=== PATIENT | female | born 1995 | race Caucasian/White ===

== ENCOUNTER 2018-06-17 19:20 | Inpatient (IN) | payer OTHER ==
[2018-06-17] MEDS ORDERED: TYLENOL PO PRN (21:11)
[2018-06-17] MEDS ORDERED: COLACE PO PRN (21:11)
--- NOTE | 2018-06-17 21:20 | History and Physical Report ---
History of Present Illness Date of examination: 06/17/18 Date of admission: 06/17/18 Chief complaint: "Sent from the clinic for evaluation" History of present illness: 23yo G 2 P 0 1 0 1 @ 37 weeks 0 day here from [facility] for evaluation secondary to IUGR. She reports +FMs and denies UCs, VB or LOF. care initiated at 7 weeks 2 days gestation. Her course has been complicated by h/o induction of labor at 35 wks secondary to IUGR and gestational thrombocytopenia. Labs: O pos, Antibody Screen neg, Pap test normal, RI, VDRL neg, Urine Culture neg, HBsAg neg, HIV neg, GC/CT neg, MASFP neg, Diabetes Screen 97, GBS neg. Past History Past Medical History: no pertinent history Past Surgical History: no surgical history Family/Genetic History: none Social history: , lives with family, full code. denies: smoking, alcohol abuse, prescription drug abuse, IV drug use - Obstetrical History Expected Date of Delivery: 07/08/18 Actual Gestation: 37 Week(s) 0 Day(s) : 2 Para: 1 Hx # Term Pregnancies: 0 Number of Pregnancies: 1 Spontaneous Abortions: 0 Induced : 0 Number of Living Children: 1 #1 Gender: Male year: 2,015 (01/2016) Birthweight: 2.268 kg (5 lbs) Method of Delivery: Vaginal Complications: other (IUGR) Medications and Allergies Allergies Allergy/AdvReac Type Severity Reaction Status Date / Time No Known Allergies Allergy Unverified 06/17/18 20:27 Active Meds: Active Medications Acetaminophen (Tylenol) 650 mg PO Q4H PRN PRN Reason: Pain MILD(1-3)/Fever >100.5/HERNANDEZ Docusate Sodium (Colace) 100 mg PO Q12H PRN PRN Reason: Constipation Multivitamins/Iron/Calcium ( Vitamin) 1 each PO QDAY BARRETT Review of Systems All systems: negative - Obstetrical FHR: auscultation normal, category 1 FHR comments: baseline 140, moderate variability, 15x15 accels, no decels Uterine Contraction Monitor Mode: External Uterine Contraction Frequency (min): 3 Uterine Contraction Pattern: Regular Results All other labs normal. Assessment and Plan - Patient Problems (1) 37 weeks gestation of Current Visit: Yes Status: Acute (2) IUGR (intrauterine growth restriction) Current Visit: Yes Status: Acute Plan to address problem: Admit to L&D for Observation Received orders from Dr. Oneal: BPP, EFW, Uterine artery Doppler, Continuous EFM. Once reactive, may eat but NPO after midnight. [facility] consult in AM. Plan of care discussed with patient & her significant other. All questions ans wered.
[2018-06-17 22:26] LABS: Hematocrit 37.3 % (30.3-42.9); Hemoglobin 12.9 gm/dl (10.1-14.3); Mean Corpuscular Hemoglobin 33 pg (28-32); Mean Corpuscular Volume 95 fl (79-97); Red Blood Count 3.91 M/mm3 (3.65-5.03)
[2018-06-17 22:27] LABS: Mean Corpuscular HGB Conc 35 % (30-34); Platelet Count 148 K/mm3 (140-440); Red Cell Distribution Width 13.9 % (13.2-15.2)
--- NOTE | 2018-06-17 23:12 | Ultrasound Report ---
FINAL REPORT PROCEDURE: US OB BPP WO NON-STRESS TECHNIQUE: Sonographic evaluation for breathing, movement, tone, and amniotic flui d volume was performed. CPT 39934 HISTORY: IUGR COMPARISON: No prior studies are available for comparison. FINDINGS: Amniotic fluid volume: Normal-score 2. At least one vertical pocket > 2 cm or more in vertical axi s. breathing: Normal-score 2. movement: Normal-score 2. tone: Normal. Score: 8 of 8. IMPRESSION: Normal biophysical profile.
--- NOTE | 2018-06-17 23:18 | Ultrasound Report ---
FINAL REPORT PROCEDURE: US OB FOLLOW UP TECHNIQUE: Real-time transabdominal sonography of the uterus, placenta, amniotic fluid, adnexa, and fetus was performed with image documentation. Measurements were obtained to determine age/size. M-mode Doppler was used to document heartbeat. CPT 04732 HISTORY: IUGR COMPARISON: No prior studies are available for comparison. FINDINGS: ADDITIONAL GESTATION: None. GENERAL: IUP: Single living intrauterine . Position: Cephalic Placental position: Anterior with grade 3 maturation, without previa. Amniotic fluid volume: Amnioti c fluid index is 6.6 centimeters which is slightly below normal range. Heart rate and rhythm: 128 beats per minute, regular anatomic survey: Normal. MEASUREMENTS: BPD: 8.5 centimeters corresponding to 34 weeks and 2 days HC: 31.5 centimeters corresponding to 35 weeks and 3 days AC: 30.7 centimeters corresponding to 34 weeks and 4 days FL: 7.2 centimeters corresponding to 37 weeks and 0 days Mean Gestational Age (composite criteria): 35 weeks and 2 days Ratio biometry: Normal. Estimated Weight: 2649 grams. Estimated Due Date (earliest scan): 07/10/2018 IMPRESSION: Single intrauterine gestation at 35 weeks and 2 days. Estimated due date: 07/10/2018.
--- NOTE | 2018-06-17 23:54 | Ultrasound Report ---
FINAL REPORT PROCEDURE: US OB VELOCIMETRY UMBILCAL ART TECHNIQUE: Real-time limited sonographic examination was performed for evaluation of umbilical cord for each fetus with image documentation (1 or more fetuses). CPT 96534 HISTORY: IUGR COMPARISON: No prior studies are available for comparison. FINDINGS: Ultrasound evaluation of the umbilical cord utilizing doppler imaging shows appropriate blood flow in the cord. S/D ratio averages 2.5. Resistive index is 0.6. heart rate 158 beats per minute. IMPRESSION: Normal umbilical cord Doppler imaging
--- NOTE | 2018-06-18 09:37 | Event Note ---
23yo 37 weeks diagnosed with IUGR at external clinic[facility] for prolonged evaluation. Chart reviewed. Low normal DANNY 6.6 EFW 2649g BPP 11/28 NST Category I US dating 35 wks 2 days Due to history of IUGR and low normal DANNY will await [facility] consult and recommendation on delivery.
[2018-06-18] MEDS: PRENATAL VITAMIN PO SCH (10:28)
--- NOTE | 2018-06-18 11:14 | Consultation ---
History of Present Illness Consult date: 06/18/18 Requesting physician: KRISTOPHER TELLEZ Reason for consult: other History of present illness: Thank you for your consultation regarding this patient. As you are aware, she is a 23 year old para 0101 at 37 weeks gestation This patient has NOT been followed by [facility]. The diagnosis of suspected IUGR was based on ultrasound performed at [facility] earlier yesterday. Patient was admitted and is NOT in labor Following admission her FHR tracing has been Category 1 Her DANNY is low at 6.6 cm. The patient describes ADMITS to movement. She denies vaginal bleeding, leakage of fluid or abdominal pain. She was written for steroids to enhance lung maturity. PAST OBSTETRICAL & MEDICAL HISTORY: See notes in patients chart. [facility] ULTRASOUND 08/30/17: presentation: Cephalic. heart motion: 147 beats per minute. Low normal DANNY 6.6 EFW 2649g. BPP 8/8 NST Category I US dating 35 wks 2 days Past History Past Medical History: no pertinent history Past Surgical History: no surgical history Family/Genetic History: none - Obstetrical History : 2 #1 Infant Gender: Male year: 2,[birth year] (01/2016) Birthweight: 2.268 kg (5 lbs) Method of Delivery: Vaginal Complications: other (IUGR) Medications and Allergies Allergies Allergy/AdvReac Type Severity Reaction Status Date / Time No Known Allergies Allergy Unverified 06/17/18 20:27 Active Meds: Active Medications Acetaminophen (Tylenol) 650 mg PO Q4H PRN PRN Reason: Pain MILD(1-3)/Fever >100.5/HERNANDEZ Last Admin: 06/18/18 01:19 Dose: 650 mg Documented by: Docusate Sodium (Colace) 100 mg PO Q12H PRN PRN Reason: Constipation Multivitamins/Iron/Calcium ( Vitamin) 1 each PO QDAY BARRETT Last Admin: 06/18/18 10:28 Dose: 1 each Documented by: - Vital Signs Vital signs: Vital Signs Pulse BP 72 112/74 06/17/18 21:20 06/17/18 21:20 Temp Pulse Resp BP Pulse Ox 97.4 F L 71 18 109/74 06/18/18 07:44 06/18/18 07:44 06/18/18 07:44 06/18/18 07:44 Results Result Diagrams: 06/17/18 22:04 Abnormal lab results 06/17/18 Range/Units 22:04 MCH 33 H (28-32) pg MCHC 35 H (30-34) % All other labs normal. Assessment and Plan ASSESSMENT This is a 23 year old para 0101 at 37+ weeks admitted due to growth restriction and borderline DANNY. Cannot rule out any other anomalies. Cannot rule out aneuploidy Category 1 Tracing. During my discussion with the patient María Elena indicated that a number of causes for growth restriction can be identified in this those would include: o Incorrect gestational dating o Chromosomal abnormalities including Down syndrome, trisomy 13 and trisomy 18. o A small for gestational age (normal) fetus. o Prescription medication o Additional abnormalities not appreciated on ultrasound. TIMING OF DELIVERY The optimal timing of delivery of the growth-restricted fetus Per ACOG recommendation depends on the underlying etiology of the growth restriction, prognosis, ultrasound findings, as well as the estimated gestational age. With stable interval growth progression I recommend the following; o At 3839 wk in an otherwise uncomplicated without concurrent findings. o At 3437 wk: with concurrent conditions (oligohydramnios, abnormal Doppler studies, early labor, maternal risk factors, co-morbidity); o Expeditious delivery regardless of gestational age, depending on related findings. At the gestational age the risk of prolongation is considerably higher than the benefits of expedited delivery and hence we would recommend that this patient be delivered. Particularly in the face of borderline amniotic fluid, I would NOT recommend outpatient management for this case. RECOMMENDATIONS: * We would recommend DELIVERY in this clinical scenario. * Case to be discussed with the physician project/production manager imaging for project/production manager imaging. * Mode of delivery should be based on Pineda score and FHR tracing following admission to the hospital. * Kindly contact [facility] as needed if her clinical status changes. Thank you for allowing us to participate in the care of this patient. If you have any questions, please contact our office at [phone] Jessica Chowdary M.D.
[2018-06-18] MEDS ORDERED: PITOCin/NS 20 UNIT/1000ML DRIP 20 UNITS/1,000 ML BAG IV SCH (14:00)
[2018-06-18] MEDS ORDERED: PITOCin/NS 30 UNIT/500ML 30 UNITS/500 ML BAG IV SCH (14:00)
[2018-06-18] MEDS ORDERED: LACTATED RINGERS 1,000 ML IV SCH (15:00)
--- NOTE | 2018-06-18 16:02 | Progress Note ---
Assessment and Plan A: IUP at 37w1d IUGR Oligohydramnios Category 1 tracing Pitocin 4mu P: Pitocin Augmentation per recommendation for Delivery [facility] Anticipate Subjective - Subjective Date of service: 06/18/18 Principal diagnosis: IUP at 37w1d, UIGR, Oligohydramnios Patient reports: movement normal, no loss of fluid, no vaginal bleeding, no contractions Objective - Vital Signs Vital Signs: Vital Signs - 12hr 06/18/18 06/18/18 06/18/18 07:43 07:44 12:14 Temperature 97.4 F L Pulse Rate 71 71 73 Respiratory 18 Rate Blood Pressure 109/74 118/79 Blood Pressure 109/74 [Left] O2 Sat by Pulse Oximetry 06/18/18 06/18/18 06/18/18 12:29 12:30 14:44 Temperature 97.1 F L Pulse Rate 78 78 81 Respiratory 18 Rate Blood Pressure 113/75 118/77 Blood Pressure 113/75 [Left] O2 Sat by Pulse Oximetry 06/18/18 06/18/18 06/18/18 14:58 15:12 15:13 Temperature Pulse Rate 81 81 81 Respiratory Rate Blood Pressure 109/68 115/74 Blood Pressure [Left] O2 Sat by Pulse 99 Oximetry 06/18/18 06/18/18 06/18/18 15:17 15:22 15:27 Temperature Pulse Rate 83 79 88 Respiratory Rate Blood Pressure Blood Pressure [Left] O2 Sat by Pulse 99 99 99 Oximetry 06/18/18 06/18/18 06/18/18 15:29 15:32 15:33 Temperature 97.8 F Pulse Rate 74 84 Respiratory Rate Blood Pressure 114/67 Blood Pressure [Left] O2 Sat by Pulse 98 Oximetry 06/18/18 06/18/18 06/18/18 15:37 15:42 15:43 Temperature Pulse Rate 80 88 73 Respiratory Rate Blood Pressure 111/70 Blood Pressure [Left] O2 Sat by Pulse 99 98 Oximetry 06/18/18 06/18/18 15:47 15:52 Temperature Pulse Rate 89 82 Respiratory Rate Blood Pressure Blood Pressure [Left] O2 Sat by Pulse 98 99 Oximetry - Exam Breasts: normal Cardiovascular: Regular rate, Normal S1, Normal S2, No murmurs Lungs: Clear to auscultation, Normal air movement Abdomen: Present: normal appearance, soft, normal bowel sounds. Absent: distention Vulva: both: normal Uterus: Present: normal, other (Gravid) FHR: category 1 Uterine Contraction Monitor Mode: External Cervical Dilatation: 3 (Per RN) Cervical Effacement Percentage: 70 station: 2 Uterine Contraction Frequency (min): 2 Uterine Contraction Pattern: Regular Uterine Tone Measurement Phase: Resting Uterine Contraction Intensity: Mild Extremities: normal Deep Tendon Reflex Grade: Normal +2 - Labs Labs: Abnormal Labs 06/17/18 22:04 MCH 33 H MCHC 35 H Laboratory Results - last 24 hr 06/17/18 06/17/18 22:04 22:04 WBC 9.4 RBC 3.91 Hgb 12.9 Hct 37.3 MCV 95 MCH 33 H MCHC 35 H RDW 13.9 Plt Count 148 Blood Type O POSITIVE Antibody Screen Negative
[2018-06-18] MEDS ORDERED: STADOL IV PRN (23:46)
[2018-06-19] MEDS ORDERED: MINERAL OIL ONE (00:21)
--- NOTE | 2018-06-19 01:16 | Procedure Note ---
OB Delivery Note - Delivery Date of Delivery: 06/19/18 Surgeon: MISHA GREGORIO Estimated blood loss: 200cc - Vaginal Delivery presentation: vertex Delivery position: OA Intrapartum events: none Delivery induction: oxytocin Delivery augmentation: rupture of membranes, pitocin Delivery monitor: external FHT, external uterine Route of delivery: Delivery placenta: spontaneous Delivery cord: 3 umbilical vessels Episiotomy: none Delivery laceration: none Anesthesia: intravenous Delivery comments: delivered OA and placed on Mom's chest for [id number] bonding and delayed cord clamping, cut by Grandma - Infant A at 1 minute: 8 at 5 minutes: 9 Gender: Female (2357gms)
[2018-06-19] MEDS ORDERED: TYLENOL PO PRN (01:17)
[2018-06-19] MEDS ORDERED: PHENERGAN PO PRN (01:17)
[2018-06-19] MEDS ORDERED: NORCO 5/325 PO PRN (01:17)
[2018-06-19] MEDS ORDERED: PHENERGAN PR PRN (01:17)
[2018-06-19] MEDS ORDERED: BENADRYL PO PRN (01:17)
[2018-06-19] MEDS ORDERED: ZOFRAN IV PRN (01:17)
[2018-06-19] MEDS ORDERED: DULCOLAX PR PRN (01:17)
[2018-06-19] MEDS ORDERED: LANSINOH TP PRN (01:17)
[2018-06-19] MEDS ORDERED: MILK OF MAGNESIA PO PRN (01:17)
[2018-06-19] MEDS ORDERED: TUCKS PAD TP PRN (01:17)
[2018-06-19] MEDS ORDERED: PITOCin/NS 20 UNIT/1000ML DRIP 20 UNITS/1,000 ML BAG IV SCH (02:00)
[2018-06-19] MEDS ORDERED: SODIUM CHLORIDE FLUSH SYRINGE 10 ML IV NR (02:00)
[2018-06-19] MEDS: MOTRIN PO SCH ×3 (04:16→17:36)
[2018-06-19] MEDS: PRENATAL VITAMIN PO SCH (12:07)
[2018-06-19] MEDS: FEOSOL PO SCH (12:07)
[2018-06-19 13:49] LABS: Hematocrit 34.3 % (30.3-42.9); Hemoglobin 11.7 gm/dl (10.1-14.3)
[2018-06-20] MEDS ORDERED: M-M-R II VACCINE SUB-Q ONE (06:00)
[2018-06-20] MEDS: MOTRIN PO SCH ×5 (06:30→22:29)
--- NOTE | 2018-06-20 09:04 | Progress Note ---
Assessment and Plan A: PPD#1 s/p Stable P: Routine PP care Discharge home today pending Peds Subjective - Subjective Date of service: 06/20/18 Principal diagnosis: PPD#1 s/p Interval history: See H&P and delivery note Patient reports: appetite normal, voiding normally, pain well controlled, flatus, ambulating normally : doing well, other (Breast/Bottle) Objective - Vital Signs Latest vital signs: Vital Signs Temp Pulse Resp BP Pulse Ox 06/19/18 21:52 98.4 F 86 20 106/65 94 06/19/18 16:48 98.5 F 78 24 86/55 97 06/19/18 12:45 98.2 F 79 20 90/57 96 Intake and Output 06/19/18 06/20/18 06/20/18 23:59 07:59 15:59 Intake Total 480 Balance 480 Intake: Oral 480 Other: Total, Intake Amount 240 # Voids Void 1 - Exam Breasts: Present: normal Cardiovascular: Present: Regular rate, Normal S1, Normal S2, No murmurs Lungs: Present: Clear to auscultation, Normal air movement Abdomen: Present: normal appearance, soft, normal bowel sounds. Absent: distention, tenderness Vulva: both: normal Uterus: Present: normal, firm, fundal height below umbilicus (-1) Extremities: Present: normal Deep Tendon Reflex Grade: Normal +2
--- NOTE | 2018-06-20 09:05 | Discharge Summary ---
Providers - Providers Date of Admission: 06/18/18 13:20 Date of discharge: 06/20/18 Attending physician: KRISTOPHER TELLEZ 06/17/18 23:30 Consult to Physician [CONS] Urgent Comment: labor admission Consulting Provider: KRISTOPHER TELLEZ Physician Instructions: recommendation for further evaulation of possible Reason For Exam: Hx of IUGR and current diagnosis Primary care physician: KRISTOPHER TELLEZ Hospitalization Reason for admission: other (IUGR) Delivery: Procedure details: See H&P and delivery note Episiotomy: none Laceration: none Other procedures: none complications: none Discharge diagnosis: IUP at term delivered [place] baby: female Condition at discharge: Good Disposition: DC-01 TO HOME OR SELFCARE Plan - Provider Discharge Summary Activity: routine, no sex for 6 weeks, no heavy lifting 4 weeks, no strenuous exercise Diet: routine Instructions: routine Additional instructions: [] Smoking cessation referral if applicable(refer to patient education folder for contact #) [] Refer to [facility] Booklet Call your doctor immediately for: * Fever > 100.5 * Heavy vaginal bleeding ( >1 pad per hour) * Severe persistent headache * Shortness of breath * Reddened, hot, painful area to leg or breast * Drainage or odor from incision. * Keep incision clean and dry at all times and follow doctor's instructions regarding bathing/showering - Follow up plan Follow up: KRISTOPHER TELLEZ [Primary Care Provider] - 6 Weeks
[2018-06-20] MEDS ORDERED: BOOSTRIX IM ONE (12:00)
[2018-06-20] MEDS: PRENATAL VITAMIN PO SCH (12:26)
[2018-06-20] MEDS: FEOSOL PO SCH ×2 (12:26→22:29)
[2018-06-21] MEDS: MOTRIN PO SCH ×2 (02:33→05:18)
[2018-06-21 10:56] VITALS: BP 104/68
== END 2018-06-21 11:50 | disposition home or self-care (01) | DRG 806 ==
LOC: TRG 19:20 → LD 19:26 → TRG 06-18 13:17 → LD 06-18 13:20 → OB 06-19 03:31
PROVIDERS: ADMIT Obstetrics & Gynecology; ATTEND Obstetrics & Gynecology
PROC: 10E0XZZ Delivery of Products of Conception, External Approach (ICD-10-PCS; principal; 2018-06-19)
PROC: 3E033VJ Introduction of Other Hormone into Peripheral Vein, Percutaneous Approach (ICD-10-PCS; 2018-06-19)
PROC: 3E0234Z Introduction of Serum, Toxoid and Vaccine into Muscle, Percutaneous Approach (ICD-10-PCS; 2018-06-20)
DX: O36.5930 Maternal care for other known or suspected poor fetal growth, third trimester, not applicable or unspecified (principal); O41.03X0 Oligohydramnios, third trimester, not applicable or unspecified; Z37.0 Single live birth; Q91.7 Trisomy 13, unspecified; Z3A.37 37 weeks gestation of pregnancy; Z23 Encounter for immunization
CPT/HCPCS: 36415; 76816; 76819; 76820; 85014; 85018; 85027; 86850; 86900; 86901; G0378; J0595; J2590; J7120